=== PATIENT | female | born 1935 | race Caucasian/White ===

== ENCOUNTER 2016-05-12 19:02 | Inpatient (IN) | payer MEDICARE, BC ==
[~2016-05-12] VITALS: Ht 160 cm; Wt 42.0 kg
[~2016-05-12 19:02] MED LIST: CALTRATE 600 +1 EAC1 PO; CULTURELLE1 CAP PO; IMODIUM DPS2 MG PO; KLOR-CON20 MEQ PO; LASIX DPS20 MG PO; LOMOTIL DPS1 PO; LOVENOX80 MG/0.8 SQ; MAALOX DPS30 ML PO; MAG-OX400 MG PO; MEGACE DPS40 MG/ML PO; MOTRIN-DPS800 MG PO; NITROSTAT0.4 MG PO; PRILOSEC DPS20 MG PO; SURFAK240 MG PO; SYNTHROID50 MCG PO; TYLENOL DP650 MG/20. PO; TYLENOL-DPS650 MG PR; TYLENOL325 MG PO; XANAX DPS0.25 MG PO; ZOFRAN4 M1 PO; ZOFRAN4 MG PO
--- NOTE | 2016-05-13 19:12 | ER ---
ADMIT: 05/12/2016 RM/LOC: 521 [facility] MR#: [id number] [address] [address] STEWARTAISHWARYA MONSIVAISLEY Jose Eduardo [address] [place] [id number] Emergency Room Report SEX: F AGE: 80 : 1935 DATE: 05/12/2016 CHIEF COMPLAINT: Shortness of breath. HISTORY OF PRESENT ILLNESS: The patient is an 80-year-old female, complaining of increasing shortness of breath, weakness, difficulty breathing particularly when she lies flat for the past 24 to 48 hours. Denies any fevers, chills, nausea, or vomiting. Does admit to productive cough with brown sputum. The patient suffers from metastatic uterine cancer undergoing experimental drug ([id number]). PAST MEDICAL HISTORY: ALLERGIES: Prednisone causing anxiety. MEDICATIONS: Please see nurse's MAR. ILLNESSES: CAD, CHF, PE, chronically anticoagulated with Lovenox, hyperlipidemia, COPD, pneumonia, ovarian cancer, metastatic uterine cancer, anxiety, and hypothyroidism. OPERATIONS: Venous access port, cholecystectomy, hysterectomy with bilateral salpingo-oophorectomy, and parotidectomy for benign disease. SOCIAL HISTORY: . Nonsmoker, nondrinker. No illicit drugs. FAMILY HISTORY: Positive for asthma, coronary artery disease, and colon cancer. REVIEW OF SYSTEMS: A 12-point review of systems negative for all other systems, illnesses, or operations except as outlined above. PHYSICAL EXAMINATION: VITAL SIGNS: Temperature 98.4, pulse 92, respirations 28, BP 110/92, and SaO2 of 90% 2 L nasal prong. GENERAL: Nontoxic, non-diaphoretic, frail, chronically ill-appearing female without jaundice or icterus. HEENT: Normocephalic. No evidence of epistaxis, rhinorrhea, or otorrhea. NECK: Supple without lymphadenopathy or thyromegaly. CHEST: Breath sounds equal diminished with faint expiratory wheeze noted throughout. HEART: Regular rate and rhythm without murmur, gallop, or edema. ABDOMEN: Soft, nontender, nondistended without mass or megaly. Bowel sounds hypoactive. EXTREMITIES: No evidence of Homans sign, synovitis, or dermatitis. Multiple ecchymoses noted. NEUROLOGIC: EOMI. PERRLA. No evidence of drift, dysarthria, or ataxia. Gait not assessed. MENTAL STATUS: Alert, oriented, anxious without delusions, hallucinations, or abnormal thought content. MEDICAL DECISION MAKING: Chest x-ray showed left lower lobe pneumonia. CTA ADMIT: 05/12/2016 RM/LOC: 521 [facility] MR#: [id number] [address] [address] DINAH SANTILLAN [address] [place] [address] Emergency Room Report SEX: F AGE: 80 : 1935 negative for PE, obstructive consolidation noted left lower lobe, and increased tumor burden noted from CT 3 weeks ago. EKG showed sinus rhythm without ST-T or Q-wave change, unchanged from previous. Hemoglobin 8.7, platelets 496, lactic 2.0, CRP 17.3, sodium 132, CK 23, troponin 0.023, D- dimer 1.04, BNP 12,216. ABGs 3 L; pH 7.46, pCO2 of 33, PO2 of 73. The patient was treated with 2 DuoNeb, magnesium with improvement, and Levaquin 500 mg IV piggyback. Discussed case Dr. Radford and Alana, who evaluated and wrote orders on floor. DIAGNOSES: 1. Obstructive left lower lobe pneumonia. 2. Metastatic uterine cancer undergoing experimental chemotherapy treatment. 3. Pulmonary embolus, chronically anticoagulated with Lovenox. RECOMMENDATION: Admit to inpatient. Telemetry for Dr. Rick Arango. DISCHARGE CONDITION: Fair. The patient is a full code. David Trent MD/ michele JOB #: [id number] CC: Rick Arango MD, Attending Physician Bubba Radford MD, Family Physician Rick Arango MD
--- NOTE | 2016-05-15 07:46 | CO ---
ADMIT: 05/12/2016 RM/LOC: 521 [facility] MR#: [id number] 2620 [facility] [address] [place] [id number] DINAH MATTA [address] [place] [address] Consultation SEX: F AGE: 80 : 1935 DATE OF CONSULTATION: 05/14/2016 ATTENDING PHYSICIAN: Rick Arango CONSULTING PHYSICIAN: Nixon Gutierrez MD HISTORY OF PRESENT ILLNESS: Ms. Matta is a delightful 80-year-old white female, nonsmoker, with previous history of metastatic endometrial/cervical cancer, diagnosed and treated in 2014. She initially was treated at [facility] in [facility]. She underwent cytoreductive surgery with total abdominal hysterectomy with bilateral salpingo-oophorectomy and lymph node dissection. This was followed by postoperative consolidative therapy with chemotherapy and radiation. Had been apparently doing fairly well until about a year later when she developed what sounded like lung metastasis. She underwent further radiation therapy, although I do not have the records handy, which she describes sounds like was stereotactic body radiation therapy to the left lung. Unfortunately, she has developed recurrence and progression of her cancer, now involving not only the left lower lobe, but another lesion in the right lower lobe. About a week ago, she was started on targeted chemotherapy in study and sounds like she is getting EGFR targeted therapy. She states that she has had increasing cough over the last 4 to 6 weeks. This has been associated with progressive shortness of breath. The shortness of breath has been worse with ambulation. She does wear oxygen at night and has been on oxygen for the last couple of years only at night prior to coming into the hospital, she was short of breath, just getting up and going to the bathroom. Shortness of breath became progressively worse to the point that she presented to the Emergency Department. In the emergency department, she underwent evaluation including labs, x-rays, and CT scan. CT scan shows progression of the tumor in the left lower lobe with consolidation and possible postobstructive pneumonia. She has been admitted to the hospital and started on antibiotics with oral Levaquin and IV Zosyn. Today (05/14/2016) is the first day that she has actually felt a little bit better. She is still short of breath with minimal exertion such as going to the bathroom and has been maintained on oxygen at 2 L/minute by nasal cannula with adequate saturations. She otherwise denies significant fevers, chills, or pain. She has not had any hemoptysis. PAST MEDICAL HISTORY: Significant for metastatic endometrial/cervical cancer. She had treatment and therapy as mentioned above with total abdominal hysterectomy with bilateral oophorectomy, and this was followed by zuni- ADMIT: 05/12/2016 RM/LOC: 521 [facility] MR#: [id number] [address] [address] DINAH MATTA [address] [place] [address] Consultation SEX: F AGE: 80 : 1935 based chemotherapy as well as radiation therapy. She has had metastatic disease to the lung and received what sounded like stereotactic body radiation therapy (SPRT). She has a history of hypothyroidism. She has had previous cholecystectomy. She also had previous pulmonary embolism. ALLERGIES: SHE HAS NO KNOWN MEDICAL ALLERGIES, THOUGH APPARENTLY INTOLERANCE OF PREDNISONE, WHICH "CAUSES HER TO GO CRAZY." MEDICATIONS: List of home medications includes: 1. Culturelle b.i.d. 2. Synthroid 50 mcg daily. 3. Surfak p.r.n. 4. Caltrate 60 mg b.i.d. 5. Lasix 20 mg daily. 6. Xanax p.r.n. 7. Hydrocodone p.r.n. 8. Zoloft 25 mg daily. 9. Symbicort 160/4.5 two puffs b.i.d. Additionally, she is on oxygen at 2 L/minute at night. SOCIAL HISTORY: She is , lives in a home with her in [place], [place]. She is a nonsmoker. FAMILY HISTORY: Noncontributory. REVIEW OF SYSTEMS: As above. A 12-point review of system performed, significant positives and negatives discussed above. Additionally, she has had weight loss to her current weight around of 100 pounds. Her normal weight prior to diagnosis of cancer was about 140 pounds. She has been able to maintain her weight now, and appetite has returned somewhat. PHYSICAL EXAMINATION: VITAL SIGNS: She was currently afebrile, temperature of 97.1. Blood pressure 105/64, pulse of 94. Oxygen saturation on 2 L of oxygen was 94%. GENERAL: This is a well-developed, thin, somewhat cachectic-appearing white female, in no acute respiratory distress at rest. HEENT: Head to be normocephalic and atraumatic. Pupils are equal and reactive. Nares patent. Posterior hypopharynx is clear. She is edentulous. NECK: Supple without adenopathy. CHEST: Decreased breath sounds. She has some crackles in the left lung base. Diminished breath sounds in the right lung, no audible wheezes. HEART: Regular, no murmur, slightly tachycardic. ABDOMEN: Thin, soft, nondistended, nontender with well-healed previous surgical incisions. ADMIT: 05/12/2016 RM/LOC: 521 [facility] MR#: [id number] [address] [address] DINAH MATTA [address] [place] [address] Consultation SEX: F AGE: 80 : 1935 EXTREMITIES: Significant muscle atrophy. No focal weaknesses are noted. No significant edema is noted. No focal neurologic deficits are noted. She has appropriate mood and affect. LABORATORY DATA: Lab and x-rays were reviewed including the CT scan. ASSESSMENT AND PLAN: 1. She has acute hypoxic respiratory failure. This is most likely secondary to her metastatic disease in the lung as well as acute pneumonia. She will be maintained on supplemental oxygen. Currently, she is wearing oxygen at night, but at the time of discharge, most likely will need continuous supplemental oxygen. 2. She has metastatic endometrial/cervical adenocarcinoma. Has failed conventional therapy and progression of her disease noted on serial CT scans. A week ago was started on targeted therapy with EGFR inhibitor, we will continue with this. I suspect the length of time she has been on the medication is not enough that would allow for any meaningful assessment of effectiveness and should be maintained on this medication at this point. 3. She has postobstructive pneumonia, currently on the combination of Zosyn and Levaquin, which we will continue with. She has significant anemia of disease. No evidence of active bleeding is noted. However, given her air hunger, may benefit from transfusion to see if we can improve oxygen carrying capacity. 4. She has severe malnutrition, being followed by dietary and receiving nutritional supplements. 5. She has a history of hypothyroidism, on replacement therapy. At this point in time, I have reviewed all of the medications and treatments and agree with current approach. Hopefully, the new targeted therapy will allow her some improvement. If this does not work, I suspect progression of the disease will unfortunately result in her demise secondary to progressive respiratory compromise. We will continue to follow here in the hospital with you and further recommendations following assessment of treatments and therapies. Nixon Gutierrez MD/ michele JOB #: [id number] CC: Rick Arango, Attending Physician Bubba Radford, Family Physician
--- NOTE | 2016-05-16 07:31 | HP ---
ADMIT: 05/12/2016 RM/LOC: 521 [facility] MR#: [id number] [address] [address] DINAH SANTILLAN [address] [place] [address] History and Physical SEX: F AGE: 80 : 1935 DATE OF SERVICE: CHIEF COMPLAINT: Shortness of breath. HISTORY OF PRESENT ILLNESS: The patient is an 80-year-old female with a history of metastatic cervical adenocarcinoma, who presents to the emergency room with progressive shortness of breath and cough. She reports that she has had a dry cough for the last 4-6 weeks that has been progressive in nature and now with few-week history of progressive shortness of breath. She reports she has had worsening difficulty at home, especially with ambulation despite attempting to wear 2 L of oxygen per nasal cannula during the day. She was previously using 2 L per nasal cannula at night, so has oxygen available to her. She denies any known fevers at home, chills, chest pain, pleuritic pain, sputum production, hemoptysis, nausea, vomiting, diarrhea, or peripheral edema. She reports that she did start a new maintenance chemotherapy through clinical trial last week, but denies any appreciable side effects. She reports her current goals of care are to be as aggressive as possible, but understands that most aggressive scenario would be maintenance of her tumor burden. She reports stable weight, though she is down about 50 pounds from her precancer weight and reports continuing difficulty with anorexia. She has no known sick contacts. PAST MEDICAL HISTORY: 1. Metastatic cervical adenocarcinoma, specifically with metastases to the lung. 2. Hypothyroidism. 3. Severe protein-calorie malnutrition. 4. History of pulmonary emboli. PAST SURGICAL HISTORY: 1. Total abdominal hysterectomy and oophorectomy due to malignancy. 2. Cholecystectomy. MEDICATIONS: Home medications are unclear at this time, will be reconciled again. ALLERGIES: INTOLERANCE TO PREDNISONE. FAMILY HISTORY: The patient reports her father had cardiac disease and hypertension, and her mother had asthma. The only other known cancer is in her family, include a sister with colon cancer, which was cured. SOCIAL HISTORY: The patient is retired. She currently lives at home with her and receives home health care. She does not use tobacco, alcohol, or other illicit drugs. REVIEW OF SYSTEMS: GENERAL: No fever or chills. Weight is currently stable. HEENT: No headaches, blurry vision, double vision, nasal congestion, or pharyngitis. ADMIT: 05/12/2016 RM/LOC: 521 [facility] MR#: [id number] [address] [address] DINAH SANTILLAN [address] [place] [address] History and Physical SEX: F AGE: 80 : 1935 CARDIAC: No chest pain or palpitations. PULMONARY: Progressive dry cough and shortness of breath including air hunger on oxygen. GASTROINTESTINAL: No recent nausea or vomiting, diarrhea or constipation. Ongoing anorexia. GENITOURINARY: No dysuria, urinary urgency, or frequency. PSYCH: No significant depression or anxiety. INTEGUMENTARY: Skin breakdown on buttocks. MUSCULOSKELETAL: Chronic hip pain, but no new muscle or joint pain. PHYSICAL EXAMINATION: VITAL SIGNS: 93/64, 80, 26, 92% on 2 L per nasal cannula, 97.8. GENERAL: Pleasant, cachectic, 80-year-old female, sitting in bed, in no acute distress. The patient is alert and oriented with clear mentation, speaking in 2-3 word sentences. HEENT: Head is normocephalic and atraumatic. Pupils are equal, round, and reactive to light. Extraocular muscles are intact. Mucous membranes are dry. Dentures are absent. Patient is edentulous. No appreciable mucocutaneous ulcers. HEART: Regular rate and rhythm without murmur, rub, or gallop. LUNGS: Diminished throughout with no appreciable wheezes or crackles. ABDOMEN: Soft, nontender to palpation. Bowel sounds are present. EXTREMITIES: Without appreciable edema. PSYCH: Normal mood and affect. NEURO: Cranial nerves II through XII are grossly intact. The patient is spontaneously moving all 4 extremities. LABS: WBC 7.4, hemoglobin 8.7, platelets 496. Creatinine 0.7. Sodium 132, albumin 1.7. CRP 17, proBNP 12,216. Procalcitonin 0.20. INR 1.22. Influenza negative. IMAGING: CT scan with left lower lobe consolidation and increased tumor burden. ASSESSMENT AND PLAN: 1. Cough, shortness breath, and hypoxia, likely multifactorial secondary to postobstructive pneumonia as well as tumor burden, possible fluid status. 2. Metastatic cervical adenocarcinoma. 3. Hyponatremia. 4. Anemia. 5. Severe protein-calorie malnutrition. 6. Hypothyroidism. PLAN: 1. Admit the patient and provide oxygen supplementation as needed to maintain sats greater than 90%. We will treat pneumonia with Zosyn at this time and monitor for improvement in respiratory status. The patient ADMIT: 05/12/2016 RM/LOC: 521 [facility] MR#: [id number] [address] [place] [phone] DINAH SANTILLAN [address] [place] [address] History and Physical SEX: F AGE: 80 : 1935 was given fluid boluses upon presentation due to screening positive for sepsis, but will be conscientious of her already elevated ProBNP, and have a low threshold to diurese as needed. 2. Hyponatremia present on admission, may correct with fluids. 3. Severe protein-calorie malnutrition, we will consult Nutrition to see if supplementation would be appropriate or desirable to the patient. We will consult Oncology and ask them to follow with the patient, especially in regard to this clinical trial chemotherapy in the setting of infection. 4. Goals of care were discussed with the patient. She is adamant that she is full code and wants to be aggressive with her care. She identifies her granddaughter as motivation for this choice. Shauna Warner MD Resident / Bubba Radford MD / michele JOB #: [id number] CC: Rick Arango, Attending Physician Bubba Radford, Family Physician
--- NOTE | 2016-05-17 15:51 | CO ---
ADMIT: 05/12/2016 RM/LOC: [facility] MR#: [id number] [address] [address] PAT MATTA [address] [place] [address] Consultation SEX: F AGE: 80 : 1935 DATE OF CONSULTATION: 05/15/2016 ATTENDING PHYSICIAN: Rick Arango CONSULTING PHYSICIAN: Dejah Cantu APRN TIME IN: 0855 hours. TIME-OUT: 0945 hours. REASON FOR CONSULTATION: Supportive care consultation was requested by Dr. Arango for discussion of goals for care and code status. HISTORY OF PRESENT ILLNESS: Pat is a very pleasant 80-year-old, female with the unfortunate history of metastatic cervical adenocarcinoma with metastases to the lung. She has received surgery, chemotherapy, and radiation. She most recently started on a trial medication about a week ago. She has been living at home with her who provides much of her care. She presented to the emergency room on 05/12 with increasing dyspnea. She was found to have postobstructive pneumonia and CT scan revealed progression of disease throughout her lung over the left hilum and the right lower lobe. Due to her complexities, supportive care consultation was requested to discuss goals for care. In terms of advanced directives, the patient is a full code. She does state that she has completed healthcare [id number] work and states that her Alfredo Matta, whose phone #[phone] and [phone] is the patient's healthcare [id number], and their daughter, Margarita Delgado, whose phone #[phone] is her secondary [id number] for healthcare. I do not have the actual documentation of this in front of me. The patient states that she has not completed a living will or other forms of advanced directives. Symptomatically, the patient is complaining of left shoulder pain. She is extremely weak and debilitated. She is cachectic. She denies dyspnea, but is fatigued. Overall, she has had significant weight loss of about 40 to 50 pounds and she is also struggling with anorexia. PAST MEDICAL HISTORY: 1. Metastatic cervical adenocarcinoma with metastases to the lung. 2. Hypothyroidism. 3. Severe protein-calorie malnutrition. 4. History of pulmonary embolism. PAST SURGICAL HISTORY: 1. Total abdominal hysterectomy with oophorectomy due to malignancy. 2. Cholecystectomy. ALLERGIES: THE PATIENT IS ALLERGIC TO PREDNISONE AND PROCAINE. ADMIT: 05/12/2016 RM/LOC: [facility] MR#: [id number] [address] [place] [address] PAT MATTA [address] [place] [address] Consultation SEX: F AGE: 80 : 1935 CURRENT MEDICATIONS: Please see the patient's MAR for specific routes and dosages. Her current medications are as follows: 1. Lasix. 2. Vasotec. 3. Aldactone. 4. Levaquin. 5. Lovenox. 6. Culturelle. 7. Zoloft. 8. Clinical trial drug. 9. Heparin. 10.Zosyn. 11.[place]. 12.Zofran. 13.Motrin. 14.Imodium. 15.Dulera. 16.Benadryl. 17.Tylenol. 18.Maalox. 19.Surfak. 20.Nitrostat. 21.DuoNeb. 22.Synthroid. SOCIAL HISTORY: The patient is . She has one child. She is retired. She does not use alcohol, drugs, or tobacco. FAMILY HISTORY: Her father had heart disease and hypertension, and her mom had asthma. She has a sister with colon cancer. FUNCTIONAL REVIEW: Prior to her hospital stay, she was at home with her . They state that she could ambulate with a walker. She was needing assistance with ADLs such as dressing and bathing. Her intake was reduced. Her palliative performance scale prior to admission was around 50%. Currently, she is mostly in the chair. She is requiring mainly assistance with ADLs. Her intake is reduced. Her current palliative performance scale is 40% to 50%. REVIEW OF SYSTEMS: A 10-point review of systems was completed and other than those pertinent positives and negatives mentioned the HPI, it is negative. PHYSICAL EXAMINATION: GENERAL: The patient is examined in the chair. She appears cachectic. She is in no acute distress. VITAL SIGNS: Temperature 97.6, pulse 95, respirations 18, blood pressure 137/72, oxygen 96% on 2 L per nasal cannula. HEENT: Head is normocephalic. Pupils are 3 mm bilaterally and brisk. Oral ADMIT: 05/12/2016 RM/LOC: [facility] MR#: [id number] [address] [address] PAT MATTA [address] [place] [address] Consultation SEX: F AGE: 80 : 1935 mucosa pink and moist with fair dentition. NECK: Supple. RESPIRATORY: Respirations are equal and nonlabored. LUNGS: Clear anteriorly. CARDIOVASCULAR: Rate and rhythm regular without murmurs, rubs, or gallops. No edema noted. GASTROINTESTINAL: Soft, nontender. Last bowel movement today. MUSCULOSKELETAL: Generalized weakness. INTEGUMENTARY: Skin is frail and thin. No obvious rashes or wounds noted. NEUROLOGIC: Alert and oriented x3. She will follow commands. PSYCHIATRIC: Calm and cooperative. No agitation noted. DIAGNOSTIC DATA: Sodium 130, potassium 4.8, BUN 13, creatinine 0.7, total protein 7.3, albumin 1.7. WBC 7.4, hemoglobin 8.4, hematocrit 28.1, platelets are 543. IMPRESSION: 1. Debility. 2. Fatigue. 3. Malaise. 4. Anorexia. 5. Cachexia. 6. Severe protein-calorie malnutrition. 7. Weight loss. 8. Left shoulder pain. 9. Metastatic cervical adenocarcinoma. 10.Pneumonia. 11.Palliative care. 12.The patient is a full code. PLAN OF TREATMENT: 1. I was able to meet with the patient and her at the bedside. We reviewed her overall status and goals for the time ahead. The patient and her are hopeful that her current trial medication will help her in the time ahead. Her goal was ongoing treatment. The immediate goal is to get back home with home health care and see how things work in terms of the medication. I did begin to gently discuss the potential that there may be a time when no further treatment can be offered to her. I did not explore this extensively at this point, as it is very clear that the patient still wants to proceed with ongoing aggressive care and is hopeful for improvement and ongoing treatment. Both the patient and her do agree to ongoing discussions in the time ahead pending her status. Overall, she is very weak and debilitated and I fear that things may not go as she hopes in the time ahead, therefore, we will continue to discuss goals. 2. I did review code status at length with the patient and her including the burden versus benefit of a full code status versus a do not resuscitate/do not intubate status. The patient is very clear that she ADMIT: 05/12/2016 RM/LOC: [facility] MR#: [id number] [facility] [address] [address] PAT MATTA [address] [place] [address] Consultation SEX: F AGE: 80 : 1935 wishes to be a full code and states that she wants to "keep on going." I am clear with the patient and her that the burden of things like CPR and intubation would be great for her given her medical complexities. She verbalizes understanding of this and directs full code at this time. We will continue to discuss this as well pending her status. 3. I will schedule Tylenol for her shoulder pain as she states that this helps significantly. 4. We will continue to follow along in the care of this patient and assist with goals in the time ahead. We would like to thank Dr. Arango for the invitation to participate in this patient's care. Total consultation time was 50 minutes from 0855 hours to 0945 hours with 27 minutes from 0900 hours to 0927 hours spent [id number] with the patient and her discussing goals for care and providing counseling and care coordination. We will continue to follow along. Dejah Cantu APRN/ michele JOB #: [id number] CC: Rick Arango, Attending Physician Bubba Radford, Family Physician
--- NOTE | 2016-05-30 16:45 | DS ---
ADMIT: 05/12/2016 RM/LOC: 521 [facility] MR#: [id number] [address] [address] PAT SANTILLAN [address] [place] [address] General Discharge Summary SEX: F AGE: 80 : 1935 ADMISSION DATE: 05/12/2016 DISCHARGE DATE: 05/18/2016 ADMISSION DIAGNOSIS: Acute hypoxic respiratory failure, likely multifactorial secondary to postobstructive pneumonia and increased metastatic lung tumor burden. DISCHARGE DIAGNOSIS: Acute hypoxic respiratory failure, likely multifactorial secondary to postobstructive pneumonia and increased metastatic lung tumor burden. SECONDARY DIAGNOSES: 1. Hyponatremia. 2. Anemia of chronic disease. 3. Severe protein calorie malnutrition. 4. Debility. 5. Hypothyroidism. 6. Metastatic endometrial cancer with metastases to the lungs, status post stereotactic radiation to the left lung. 7. Anorexia. 8. Malaise. 9. Weight loss. CONSULTATION: Oncology, Pulmonology, and supportive care. PROCEDURES: None. HISTORY OF PRESENT ILLNESS: Pat presented to the emergency room for 4-6 weeks of progressive shortness of breath and dry cough. She denied any recent fevers, chills, chest pain, including pleuritic pain, sputum production, hemoptysis, nausea, vomiting, diarrhea, or peripheral edema. She has had a chest CT completed on 04/24/2016, and when it was repeated in the ER on the , there was interval increase in bilateral tumor burden in her lungs. On admission, white blood cell count was 7.4, hemoglobin was 8.7, platelets were 496. [place] [address]. Procalcitonin tone was 0.20. Influenza and respiratory viral panel were negative. Blood and urine cultures were collected. There were no growth during the hospitalization. HOSPITAL COURSE: The patient was admitted and treated first as postobstructive pneumonia with Zosyn and Levaquin. On hospital day #2, we reassured she was not septic. She was given some mild IV diuresis and then started on oral diuresis. Her symptoms only mildly improved throughout the hospitalization. She continued to have significant shortness of breath with ambulation that required 2 L of oxygen per nasal cannula continuously. At her best, she was able to walk 30 feet at a time before needing to rest with a total of 115 feet of ambulation therapy. In addition to the shortness of breath, she did have ongoing left shoulder pain. X-rays were completed, which were consistent with osteoarthritis. There was no metastatic bone lesions or other etiologies of her pain. She was treated with Tylenol and then again ADMIT: 05/12/2016 RM/LOC: 521 [facility] MR#: [id number] [address] [address] PAT SANTILLAN [address] [place] [address] General Discharge Summary SEX: F AGE: 80 : 1935 Gould, which was effective. Nutrition saw the patient throughout her hospitalization and recommended supplements 3 times daily between meals. On hospital day #7, the patient elected to be discharged to the [facility] unit. Throughout her hospitalization, Supportive Care was consulted and other conversations were held about her goals of care. Pat maintains that she wants to be aggressive with her care as she has just started the new trial of chemotherapy within the last week. At this time, she elects to be full code and has the goal of returning home with home health care. She did elect to go to the [facility] unit for acute rehab due to her debility with hopes to discharge home. Home oxygen was set up at 2 L per nasal cannula continuously and she was provided a nebulizer for DuoNeb q.i.d. DISCHARGE MEDICATIONS: 1. Aldactone 25 mg p.o. 3 times weekly. 2. Culturelle one cap p.o. b.i.d. 3. Levaquin 500 mg p.o. for 3 additional days. 4. Clinical trial chemotherapy one pill twice daily p.o. 5. Synthroid 50 mcg p.o. daily. 6. Tylenol 650 mg p.o. q.8 hours and p.r.n. as needed. 7. Zoloft 25 mg p.o. daily. 8. Dulera 200/5 two puffs inhaled b.i.d. 9. DuoNeb 3 mL inhaled q.i.d. 10.Lovenox 50 mg subcutaneous daily. 11.Heparin flush IV daily. 12.Lasix 20 mg p.o. daily. 13.Benadryl 25 mg p.o. p.r.n. 14.Hydrocodone/acetaminophen 5/325 mg p.o. q.4 hours and at bedtime p.r.n. pain. 15.Imodium 2 mg p.o. daily p.r.n. loose stools. Additional PRN: 1. Maalox. 2. Motrin. 3. Surfak. 4. Tylenol. 5. Zofran. 6. DuoNeb. 7. Nasal saline. 8. Nitrostat. ADMIT: 05/12/2016 RM/LOC: 521 [facility] MR#: [id number] [address] [address] PAT SANTILLAN [address] [place] [address] General Discharge Summary SEX: F AGE: 80 : 1935 Medication changes in this hospitalization: Aldactone and Lasix were added for management of fluid status and she will complete a course of Levaquin due to post-obstructive pneumonia. CONDITION ON DISCHARGE: Guarded. DISPOSITION: senior care unit for acute rehab. CODE STATUS: Full code. DIET: Pureed diet with Ensure supplements 2-3 times daily. Follow up with Dr. Arango as needed. Shauna Warner MD Resident / Rick Arango MD / modl JOB #: [id number] CC: Rick Arango MD, Attending Physician Bubba Radford MD, Family Physician
== END 2016-05-18 10:07 | DRG 193 ==
LOC: ER 19:02 → 5MS 20:27
PROVIDERS: ADMIT Family Medicine
DX: J18.9 Pneumonia, unspecified organism (principal); J96.21 Acute and chronic respiratory failure with hypoxia; E43 Unspecified severe protein-calorie malnutrition; I50.23 Acute on chronic systolic (congestive) heart failure; C78.01 Secondary malignant neoplasm of right lung; C78.02 Secondary malignant neoplasm of left lung; Z68.1 Body mass index [BMI] 19.9 or less, adult; E87.1 Hypo-osmolality and hyponatremia; Z99.81 Dependence on supplemental oxygen; D63.0 Anemia in neoplastic disease; F41.9 Anxiety disorder, unspecified; M19.012 Primary osteoarthritis, left shoulder; I25.10 Atherosclerotic heart disease of native coronary artery without angina pectoris; E78.5 Hyperlipidemia, unspecified; E03.9 Hypothyroidism, unspecified; Z79.01 Long term (current) use of anticoagulants; Z86.711 Personal history of pulmonary embolism; Z82.49 Family history of ischemic heart disease and other diseases of the circulatory system; Z85.42 Personal history of malignant neoplasm of other parts of uterus

== ENCOUNTER 2016-05-17 09:36 | Inpatient (IN) | payer MEDICARE, BC ==
[~2016-05-17] VITALS: Ht 160 cm; Wt 51.6 kg
--- NOTE | 2016-05-31 10:46 | NUR ---
MDS 3.0 INTERVIEW WITH ADMISSION TO SNU ON 05/18/16: PT. IS ALERT, ORIENTED AND COGNITION IS INTACT. PT. IS A GOOD HISTORIAN WITH ADMISSION ASSESSMENT. PRIOR TO HOSPITALIZATION SHE WAS AT HOME WITH SPOUSE, INDEPENDENT IN ALL HER ADLS AND NEEDS, COOKED FOR HERSELF AND ASSISTED SPOUSE, WHO IS PRESENT AND DOES NOT PUT ANY INPUT DURING THE ENTIRE ADMISSION. SHE STATES SHE WAS HAVING SHORTNESS OF BREATH AND INCREASED DIFF BREATHING AND THAT IS WHY SHE CAME INTO HOSPITAL. HER GOAL IS TO RETURN HOME WITH HER SPOUSE, SHE FEELS ONCE SHE GETS STRONGER AND AND GETS OVER HER PNEUMONIA SHE WILL BE ABLE TO RETURN HOME BEFORE. SHE DENIES ANY DEPRESSION, SHE HAD BEEN SLEEPING WELL AND HER APPETITE IS NOT VERY GOOD, SHE STATES SHE JUST ISN'T HUNGRY. AN ENSURE COMPACT WAS GIVEN TO HER ON ADMISSION AND SHE FELT SHE COULD DRINK IT, SHE CAN ONLY TAKE IN SMALL AMTS AT A TIME SHE STATES. SHE STATES SHE REALLY HAS NO PAIN, BUT STATES TOWARD THE EVENING HOURS HER LT. SHOULDER STARTS BOTHERING HER, IF SHE TAKES A PAIN PILL THAT HELPS HER GET REST AT NIGHT. SHE HAS NO TEETH SHE STATES SO SHE NEED TO HAVE GROUND MEAT AND VERY SOFT FOODS. SHE ALSO HAS PRESSURE ULCERS TO HER BUTTOCKS AND INNER BUTTOCKS, SO A PRESSURE RELIEF CUSHION IN HER CHAIR IS IN PLACE. LIMITED ASSIST OF ONE WHEN ARRIVED TO CHAIR WITH USE OF A GAIT BELT AND A WALKER, GAIT IS WEAK, SL UNSTEADY. SHE STATES SHE HAS RENAULDS DISEASE AND NOTED HER FEET ARE VERY DISCOLORED WELL HER NAILBEDS, DUSKY IN COLOR. DIFFICUT TIME GETTING OXYGEN SATS AND HAS O2 ON AND PT STATES SHE HAS O2 AT HOME BUT DOES NOT KNOW THE NAME OF THE COMPANY. SHE IS ON A TRIAL CHEMO MEDICATION DUE TO OVARIAN CA METS TO THE LUNG. REHAB HERE TO EVALUATE PT., THANKED HER FOR VISIT AND BEING A PT. HERE AT [facility].
== END 2016-06-06 12:31 | disposition short-term general hospital (02) | DRG 193 ==
LOC: SNU 09:36
PROVIDERS: ADMIT Family Medicine
PROC: F08Z4ZZ Home Management Treatment (ICD-10-PCS; principal; 2016-05-18)
PROC: F07Z9ZZ Gait Training/Functional Ambulation Treatment (ICD-10-PCS; principal; 2016-05-18)
PROC: 30233N1 Transfusion of Nonautologous Red Blood Cells into Peripheral Vein, Percutaneous Approach (ICD-10-PCS; 2016-05-29)
DX: J18.9 Pneumonia, unspecified organism (principal); E43 Unspecified severe protein-calorie malnutrition; L89.312 Pressure ulcer of right buttock, stage 2; J96.11 Chronic respiratory failure with hypoxia; C78.01 Secondary malignant neoplasm of right lung; C78.02 Secondary malignant neoplasm of left lung; I50.30 Unspecified diastolic (congestive) heart failure; Z68.1 Body mass index [BMI] 19.9 or less, adult; E87.1 Hypo-osmolality and hyponatremia; Z99.81 Dependence on supplemental oxygen; D63.0 Anemia in neoplastic disease; M19.012 Primary osteoarthritis, left shoulder; F41.9 Anxiety disorder, unspecified; I25.10 Atherosclerotic heart disease of native coronary artery without angina pectoris; E78.5 Hyperlipidemia, unspecified; E03.9 Hypothyroidism, unspecified; Z79.01 Long term (current) use of anticoagulants; Z86.711 Personal history of pulmonary embolism; Z82.49 Family history of ischemic heart disease and other diseases of the circulatory system; Z85.42 Personal history of malignant neoplasm of other parts of uterus

== ENCOUNTER 2016-06-06 12:38 | Inpatient (IN) | payer MEDICARE, BC ==
[~2016-06-06] VITALS: Ht 160 cm; Wt 56.2 kg
--- NOTE | 2016-06-07 13:33 | HP ---
ADMIT: 06/06/2016 RM/LOC: 312 [facility] MR#: [id number] [address] [address] PAT SANTILLAN [address] [place] [address] History and Physical SEX: F AGE: 80 : 1935 DATE OF SERVICE: CHIEF COMPLAINT: Worsening "failure to thrive" and hypoxia with multiple medical issues. INTERVAL NOTE Pat is a very nice, but unfortunate 80-year-old woman who had a diagnosis of metastatic endometrial carcinoma made over the last couple of years and has been through multiple treatments with the local oncology unit after surgery at [facility] in [place]. She was hospitalized here from late April until 05/18/2016, with a 6 day stay with hypoxic respiratory failure associated with pneumonia and diastolic congestive heart failure and metastatic endometrial cancer to her lungs with obstructive disease. She was quite anemic through that hospitalization and was seen by Oncology. She received several transfusions. She also required catheterization for inability to void. She has been at the alf unit since and over the last several days, staff and family have been concerned with her deterioration with increasing oxygen needs, lower blood pressures, increasing proBNP testing, and changes on her x-ray of failure. With her last hospitalization, her ejection fraction was normal. She has been quite resistant to the idea of palliative care and hospice. I had seen her on 06/04/2016 in the office (just 2 days ago) and at that point, she had a blood pressure in the range of 85-90 systolic, pulse of 90. She was afebrile. O2 sats were 90% on 4 L. She was looking increasingly emaciated and I had a rather long discussion with her and granddaughter and another granddaughter by phone suggesting that they would have to sit down and decide what they wanted to do with her deteriorating status. I did suggest that they consider palliative care/hospice and they have had those consultations with her last hospitalization. The skilled unit staff was concerned that she needed hospitalization "for dopamine and Lasix to help her congestive failure." I indicated to family and Pat at the last office visit I was pessimistic that even that would be helpful over the long-term. At any rate, staff called today stating she was continuing to deteriorate and was having O2 sats in the 70s on 6 L. After discussion with the family by staff, they wanted her to be hospitalized. On discussion with her granddaughter Pam who is a nurse and most tuned into her situation, "we just wanted to be comfortable and not feel like she can breathe." Pam has had conversation with her grandmother and mother (who is Pat's POA) that they might need to consider hospice and palliative care, but again Pat has been quite resistant to that. At the office visit 2 days ago, I had a demar discussion with aPt and I think she is moving toward seeing the futility in further care. However, she is now readmitted to ICU because of her hypoxia and we will seek multiple consultations with the escrow agent, senior communications specialist, oncologists, and again with palliative care. PAST MEDICAL HISTORY: Well documented on her previous chart. She carries medical diagnoses of diffuse osteoarthritis, diastolic congestive heart failure, hyperlipidemia, hypothyroidism, previous insufficiency pelvic fractures (November 2015), pulmonary embolism post tank cooper surgery May 2013, and her RUDOLPH/BSO with node exploration with positive nodes at [facility] May 2014 for endometrial carcinoma-now with wide metastases to the ADMIT: 06/06/2016 RM/LOC: 312 [facility] MR#: [id number] [address] [address] TYRELL PAT Jose Eduardo [address] [place] [address] History and Physical SEX: F AGE: 80 : 1935 lung, liver, and bone. She has also had a laparoscopic cholecystectomy in June 2009. CURRENT MEDICATIONS: Include: 1. Aldactone 25 mg Saturday, Saturday, and Saturday. 2. Caltrate with D 600 b.i.d. 3. Culturelle capsules b.i.d. 4. Dulera 200/5 two inhalations b.i.d. 5. Lovenox 60 mg subcu daily. 6. Hydrocodone/acetaminophen 5/325 mg 1/2 to 1 tablet at bedtime p.r.n. 7. Ibuprofen 800 mg q.6 p.r.n. 8. Imodium AD p.r.n. 9. DuoNeb nebulizers q.i.d. and q.1 to 2 hours p.r.n. 10.Lasix 20 mg daily. 11.Maalox and Nitrostat p.r.n. 12.Naproxen 375 mg b.i.d. 13.Surfak 240 mg b.i.d. 14.Synthroid 50 mcg once daily. 15.Xanax 0.25 mg 1/2 tab q.4 hours p.r.n. 16.Zoloft 25 mg daily. 17.Zofran 4 mg q.6 hours p.r.n. nausea. ALLERGIES: SHE REPORTS AN ALLERGY TO PENICILLIN. SHE DOES HAVE AN ALLERGY TO PREDNISONE-GI UPSET. SOCIAL HISTORY: Reveals she has never been a smoker and does not use alcohol. Until her current cancer hit her, she was very active. She and her have lived independently in their home. He is very attentive to her needs - as is the entire family. FAMILY HISTORY: Her mother had asthma. Sister has hypertension and had colon cancer which she survived. REVIEW OF SYSTEMS: She reports no vision problem or headache. She denies any pain except for persistent pain in her left scapular area - felt possibly due to her metastatic disease. She has not been eating very much, so she has been a bit constipated. She has required continued Olvera care for her urinary retention. She has a chronic diagnosis for some anxiety. She has had no history for neurologic illnesses. Remainder of the review of systems is negative. PHYSICAL EXAMINATION: GENERAL: She is alert, she is afebrile. Again she is very frail, looks cachectic but denies any severe pain or difficulty breathing. VITAL SIGNS: Blood pressures were in the 90 range, pulse is about 85, O2 sats in the ICU now on 6 L are in the low 90s. NECK: Reasonably supple. No adenopathy. LUNGS: She has bibasilar crackling rales. ADMIT: 06/06/2016 RM/LOC: 312 [facility] MR#: [id number] [address] [address] PAT SANTILLAN [address] [place] [address] History and Physical SEX: F AGE: 80 : 1935 CARDIAC: She has regular cardiac rhythm. I do not detect murmur. ABDOMEN: Scaphoid without obvious masses, tenderness, organomegaly. EXTREMITIES: Lower extremities show 1+ pitting edema to the midcalf bilaterally. Neurologic is without focal neurologic findings. IMPRESSION: 1. Increasing diastolic congestive heart failure. 2. Possible persistent pneumonia with obstructive disease. 3. 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 4. Worsening "failure to thrive."/downward spiral. 5. All of her other diagnoses. PLAN: She is in the unit. We will seek consultations from Cardiology, Pulmonology, and Oncology and again consultation with Palliative Care. All of this I think hopefully will allow the family and Pat to make appropriate decisions - I have indicated to them that I think further aggressive therapy will be futile in the long run and that they should seriously consider palliative care/hospice. However, we will obviously do whatever Pat and her family decide to ask us to do! I have discussed this again with Pat and her and two granddaughters. Rick Arango MD/ michele JOB #: [id number] CC: Rick Arango, Attending Physician UNKNOWN, Family Physician
--- NOTE | 2016-06-08 11:38 | CO ---
ADMIT: 06/06/2016 RM/LOC: 312 [facility] MR#: [id number] [address] [address] DINAH MATTA Jose Eduardo [address] [place] [address] Consultation SEX: F AGE: 80 : 1935 DATE OF CONSULTATION: 06/06/2016 ATTENDING PHYSICIAN: Rick Arango CONSULTING PHYSICIAN: Dioni Bragg MD LOCATION OF SERVICE: [facility]. REASON FOR CONSULTATION: Requested our consultation for risk reduction counselor, coordination of goals, and options of care. HISTORY OF PRESENT ILLNESS: This is a pleasant 80-year-old elderly female, who is known to our practice and was seen by my partner Dejah Cantu JOHN during her last hospitalization in April of 2016. She does carry a diagnosis of metastatic cervical adenocarcinoma with metastasis to the lungs. She has received surgery, chemotherapy, and radiation in the past and does follow with Dr. Mcintosh and most recently was started on a trial medication, however, I am unaware if she is currently on this. She was hospitalized in April for pneumonia. She had acute hypoxic respiratory failure and was treated aggressively with antibiotic therapy and diuresing. She did require supplemental oxygen at 2 L/minute per nasal cannula continuously. On discharging, she did discharge to a halfway unit for acute rehab. She was admitted today with complaints of dyspnea and increasing oxygen needs. Laboratory work has been collected and is pending at this time. Antibiotic therapy has been started with Levaquin. Oxygen supplementation at 6 L/minute per nasal cannula is in place. She is oxygenating at 93% at this time. Pulmonary consult, Cardiology consult, Oncology consult has been ordered and are pending at this time. Dr. Arango has discussed with the patient and the family his concerns of her continued deterioration and patient and family have continued to direct to proceed with aggressive measures including hospitalizations and full code status. Current functional status reflects a palliative performance score of 30. She is bed bound, unable to do any work due to extensive disease. She is needing total self cares at this time. Her intake is reduced. Her conscious level, she is alert and oriented x3. Prior to admission, her functional status reflects a palliative performance score of around 40 per family's report. She spends most time in the bed or in the chair. She was attempting to do rehabilitation exercises and she needed assistance with her self care. Her intake has been reduced, she has been losing weight, family reports unknown amount of weight loss. Her conscious level has been drowsy at times. PAST MEDICAL HISTORY: Metastatic cervical adenocarcinoma with metastasis to the lung, hypothyroidism, severe protein calorie malnutrition, pulmonary emboli, pneumonia with recent hospitalization in April 2016, diastolic heart failure, last transthoracic echocardiogram was on April 24, 2016 with an ejection fraction 65%. ADVANCED DIRECTIVE AND CODE STATUS: She is a full code status at this time. ADMIT: 06/06/2016 RM/LOC: 312 [facility] MR#: [id number] [address] [place] [id number] DINAH MATTA [address] [place] [address] Consultation SEX: F AGE: 80 : 1935 Her healthcare [id number] is her , Alfredo Matta whose phone #[phone] and [phone]. The daughter is also listed as healthcare [id number]. Her name is Corbyshea Sandy #[phone]. Symptomatically Mrs. Matta denies pain, denies shortness of breath for me at this time. Denies anxiety. Denies nausea, vomiting, or constipation. She does admit to fatigue. She admits to dry mouth and decreased appetite. She reports that she has been losing weight but unaware of the amount, in the past it has been documented to 40-50 pounds weight loss. FAMILY HISTORY: Her father had heart disease and hypertension. Her mother had asthma and she has a sister with colon cancer. CURRENT MEDICATIONS: Include: 1. Merrem. 2. DuoNeb. 3. Tylenol. 4. Nitrostat. 5. Levaquin. ALLERGIES: PREDNISONE, NOVOCAIN. REVIEW OF SYSTEMS: A 10-point review of system was conducted, was otherwise unremarkable except as noted in HPI and PMH. PHYSICAL EXAMINATION: CONSTITUTIONAL: Weight is 107 pounds. Please see medical record for height and BMI. GENERAL STATUS: This is a pleasant elderly cachectic female, in no acute distress. Alert and oriented, able to participate fully in consultation. VITAL SIGNS and CODE STATUS: She is a full code status with temperature of 96.7, heart rate 89, respiratory rate 14, blood pressure 91/57. She is on 6 L of oxygen per nasal cannula oxygenating 93%. HEENT: Head is normocephalic, atraumatic. She does not wear glasses. Pupils are 3 mm, PERRLA. Hearing is intact bilaterally. Oral mucosa is dry. She is edentulous. Anicteric sclerae. Conjunctivae pale. NECK: No lymphadenopathy. Trachea is midline. Supple. No JVD. RESPIRATORY: Respirations are regular without distress. Lung sounds are diminished bilaterally. I do not auscultate any wheezes, crackles, or rhonchi. CARDIOVASCULAR: Rate and rhythm are regular. I do not auscultate rubs, murmurs, clicks, or gallops. GASTROINTESTINAL: Abdomen is soft, flat, nontender and nondistended. Positive bowel sounds in all 4 quadrants. EXTREMITIES: Upper and lower extremities are free of cyanosis, clubbing. She does have 3+ bilateral lower extremity edema. INTEGUMENTARY: Skin temperature is warm. Skin is intact. MUSCULOSKELETAL: Free of joint deformity. Does have generalized weakness. ADMIT: 06/06/2016 RM/LOC: 312 [facility] MR#: [id number] 2620 [facility] [address] [place] [id number] DINAH MATTA [address] [place] [address] Consultation SEX: F AGE: 80 : 1935 NEUROLOGICAL: Alert and oriented x3. She does follow commands. PSYCHIATRIC: Affect is flat. Insight is intact. IMPRESSION AND PLAN: 1. Physical debility. 2. Fatigue. 3. Malaise. 4. Severe protein calorie malnutrition with an albumin 1.2 on June 04. 5. Weight loss of unknown amount. 6. Metastatic cervical adenocarcinoma with metastases to lung, follows with Dr. Mcintosh, has had radiation, chemotherapy. And surgery in the past. 7. Diastolic congestive heart failure. Transthoracic echocardiogram on 04/24/2016 reveals an ejection fraction of 65%. 8. Questionable persistent pneumonia, chest x-ray is pending. 9. Acute on chronic hypoxic respiratory failure. 10.Palliative care. 11.Full code status. Symptoms are currently controlled at this time. Mrs. Matta reports no pain, no dyspnea, no nausea, vomiting, constipation, or anxiety. Her and her granddaughter are at the bedside. All aware of her fragile health state at this time. The patient and family report that Dr. Arango does have concerns of overall decline. We did discuss goals and options of care including code status options, full code versus do not resuscitate/do not intubate status with benefits and burdens. Patient and family continue to direct a full code status as they have during her last hospitalization with consultation with us and with Dr. Arango. The patient and family directed to continue plan of care at this time with further evaluation and treatment and hope to see improvement soon. The patient and family do appreciate our consultation and support at this time and will continue discussions with us during her during her hospitalization as more information is obtained from specialists of Cardiovascular team, Pulmonary team and Oncology Team. Much support given at this difficult time. I have discussed this consultation with nursing staff. Mrs. Matta was seen in collaboration Dr. Chavies who agrees with the above assessment, discussion, and plan. I would like to thank Dr. Arango for the invitation to participate in Mrs. Matta's hospital course. Total consultation time was from 1355 hours to 1429 hours on 06/06/2016 by Palliative Medicine MULTIMEDIA AUTHORING SPECIALIST, this occurred at the bedside. Rufina Mills APRN / Dioni Bragg MD / michele JOB #: [id number] CC: Rick Arango, Attending Physician UNKNOWN, Family Physician
--- NOTE | 2016-06-11 10:29 | CO ---
ADMIT: 06/06/2016 RM/LOC: 312 [facility] MR#: [id number] [address] [id number] STEWARTYODIT DINAH A [address] [place] [address] Consultation SEX: F AGE: 80 : 1935 DATE OF CONSULTATION: 06/06/2016 ATTENDING PHYSICIAN: Rick Arango CONSULTING PHYSICIAN: Alden Rajput MD HISTORY OF PRESENT ILLNESS: She is 80 years old. She was admitted by Dr. Arango to the ICU with low blood pressure and hypotensive shock. 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 She has been through chemotherapy, lately was on oral chemotherapy from oncologist, which has been stopped because of a sore in the mouth. She has a diagnosis of diastolic heart failure. Her proBNP was elevated. She has anemia, hyponatremia, and she was noted to have a deteriorating overall functional status. She was admitted and the family was appraised of the overall status, and her approaching to futile care, but they have decided to go with a full code status. I got a chance to talk to the granddaughter who was present in the room. The patient has expressed a full code status. Dr. Arango has consulted palliative care already to see also, and I was advised to see and manage the hypotension. She has a questionable allergy to prednisone which caused her GI upset. She has been weak and getting weaker. She does get some left chest pain and shoulder pain. She has soreness in her mouth. The diagnosis of uterine cancer was made probably in June or July of 2014, she told me. PHYSICAL EXAMINATION: GENERAL: She looked markedly cachectic, but she was alert and appropriate. There was no clubbing. She has poor skin turgor. There was no lymphadenopathy. There was some whitish hard palate, distinct thrush not seen. Trachea in the midline. Diminished percussion noted on breath sounds and rhonchi on the left. HEART: No heart murmur. ABDOMEN: Soft, nontender. IMAGING: The chest x-ray shows unchanged appearance with left lower hemithorax being opacified because of consolidation atelectasis effusion or combination thereof. LABORATORY DATA: Her lactate level is 1.2, white count is 7.6, hemoglobin 8.8, platelets 549. Sodium 129, potassium 5.1, chloride 97, glucose 97, and creatinine of 0.7. Blood cultures drawn. IMPRESSION: My clinical impression is hypotension, probably hypovolemic. She has not been drinking or eating well and going downhill. I wonder she may have adrenal metastasis also or adrenal insufficiency because of chemotherapy. The adrenal insufficiency becomes a possibility because of potassium of 5.1 ADMIT: 06/06/2016 RM/LOC: 312 [facility] MR#: [id number] [address] [address] DINAH SANTILLAN [address] [place] [address] Consultation SEX: F AGE: 80 : 1935 and sodium of 129. I am going to check a cortisol level and give her Solu- Cortef that may help. I would like to do her some fluid resuscitation with normal saline and some how not convinced that she has a florid congestive heart failure. Overall prognosis, no matter how we look at it is poor. I know that the discussion about futile care has been brought up. I know that the palliative care has already seen. I will see the family opinion in the regard, but I concur with Dr. Arango's assessment that it may not be very rewarding to resuscitate her or ventilate her, etc. Alden Rajput MD/ michele JOB #: [id number] CC: Rick Arango, Attending Physician UNKNOWN, Family Physician MD Rick Portillo MD
--- NOTE | 2016-06-15 10:36 | CO ---
ADMIT: 06/06/2016 RM/LOC: 312 [facility] MR#: [id number] [address] [address] PAT SANTILLAN [address] [place] [address] Consultation SEX: F AGE: 80 : 1935 DATE OF CONSULTATION: 06/06/2016 ATTENDING PHYSICIAN: Rick Arango CONSULTING PHYSICIAN: Kevin Sharma MD REASON FOR CONSULT: Worsening diastolic CHF. HISTORY OF PRESENT ILLNESS: Pat is a very pleasant 80-year-old female with metastatic uterine cancer and known lung metastases. She has undergone chemotherapy and radiation in the past and most recently has been on a clinical trial medication. Over the last few days, her condition has been deteriorating. She has had increasing weakness and shortness of breath. The patient's family was concerned about heart failure as her BNP has increased. Per family report, she was noted to be hypoxic at the group home facility with markedly decreased O2 saturations. She has also been hypotensive. Just 3 weeks ago, she had been hospitalized with acute hypoxic respiratory failure due to postobstructive pneumonia and increased metastatic lung tumor burden. At this time, the family was concerned about increasing water retention in the setting of hypotension and it was felt that the level of care available through the group home facility was not sufficient for her situation. The patient has requested to continue to have all medical interventions possible, therefore she was admitted today for further assessment and management. CARDIAC HISTORY AND RISK FACTORS: Pat states that she has had no problems with her heart in the past. During her most recent hospitalization for hypoxia, an echocardiogram revealed an ejection fraction of 65%, interventricular septum flattening consistent with right ventricular pressure or volume overload, mildly dilated right ventricle with mildly reduced right ventricular function, and the right ventricular wall measuring 0.9 cm, indicating right pressure overload. She denies having any problems with chest pain, palpitations, orthopnea, or syncope. She does have a history of pulmonary emboli; however, it is unclear when that occurred. She continues on Lovenox subcutaneously daily for this. She is a lifetime nonsmoker and has no history of hypertension, hyperlipidemia, or diabetes. There is no known family history Of heart disease. PAST MEDICAL HISTORY: Significant for metastatic uterine cancer with lung metastases, pulmonary emboli, poor nutritional status, hypothyroidism, intermittent constipation, anxiety. PAST SURGICAL HISTORY: Available records indicate prior total abdominal hysterectomy, and oophorectomy as well as cholecystectomy. ALLERGIES: SHE IS ALLERGIC TO PROCAINE AND PREDNISONE. HOME MEDICATIONS: 1. Culturelle. ADMIT: 06/06/2016 RM/LOC: 312 [facility] MR#: [id number] [address] [address] TYRELL PAT Jose Eduardo [address] [place] [address] Consultation SEX: F AGE: 80 : 1935 2. Nitrostat as needed. 3. Levothyroxine 50 mcg daily. 4. Acetaminophen as needed. 5. Surfak as needed. 6. Imodium as needed. 7. Caltrate plus D. 8. Furosemide 20 mg daily. 9. Maalox as needed. 10.Ibuprofen as needed. 11.Xanax as needed. 12.Ondansetron as needed. 13.Lovenox 75 mg subcu daily. 14.Hydrocodone as needed. 15.Sertraline. 16.Tylenol as needed. 17.Symbicort twice daily. FAMILY HISTORY: Pat reports that she has no significant family history of heart disease, diabetes, cancer, or stroke. SOCIAL HISTORY: Pat has recently been living in a group home facility since her recent hospitalization. Prior to that, she lived in her home with her in [place]. She denies consumption of alcohol nonprescription drugs. She does have an occasional caffeinated beverage. REVIEW OF SYSTEMS: GENERAL: Positive for fatigue. Denies fever, chills, sweats, rash, or weight loss. EYES: Denies double vision, blurred vision, cataracts, or glaucoma. ENT: Denies hearing loss or problems with nose, mouth or throat. PULMONARY: Positive for shortness of breath. Denies cough, sputum production, asthma, emphysema or bronchitis. Denies snoring loudly, wakefulness at night, or fatigue upon awakening. GASTROINTESTINAL: Positive for intermittent abdominal pain. Denies heartburn or difficulty swallowing. No change in bowel habits. Denies dark or bloody stools. No history of ulcers, hiatal hernia, or gallbladder or liver disease. GENITOURINARY: Denies dysuria, hematuria, nocturia, urinary tract infection, or kidney stones. Denies history of renal insufficiency or failure. MUSCULOSKELETAL: She states she does have a sore on her buttocks. Denies history of arthritis or gout. Denies muscle or joint pains. ENDOCRINE: Positive for thyroid problems. Denies history of diabetes. HEMATOLOGIC: Positive for anemia and cancer. Denies history of easy bruising. NEUROLOGIC: Positive for history of possible TIA per patient. Denies chronic headaches, dizziness, syncope, seizures or numbness or tingling. PSYCHIATRIC: Positive for anxiety. Denies history of mental illness or feelings of depression. PHYSICAL EXAMINATION: VITAL SIGNS: Blood pressure 91/57, pulse 89, ADMIT: 06/06/2016 RM/LOC: 312 [facility] MR#: [id number] [address] [address] PAT SANTILLAN [address] [place] [address] Consultation SEX: F AGE: 80 : 1935 respirations 14, temperature 96.7, O2 saturation 93% on 6 L of O2. GENERAL: She is cachectic appearing, but in no acute distress. SKIN: [place], warm, and dry. EYES: Sclerae clear. No xanthelasmas. ENT: Oral mucosa is pink and moist. No jugular venous distention or carotid bruits. CHEST: Respirations are even and unlabored. Lungs are clear to auscultation. HEART: Regular rate and rhythm. Normal S1, S2. No murmurs, rubs or gallops. ABDOMEN: Soft and nontender. MUSCULOSKELETAL: She is weak with movement. EXTREMITIES: Trace to 1+ edema bilaterally. Peripheral pulses palpable. No clubbing or cyanosis. PSYCHIATRIC: Alert and oriented. Mood and affect are appropriate. DIAGNOSTIC STUDIES: WBC 7.6, hemoglobin 8.8, platelets 549. Sodium 129. BNP 11,948. Cardiac enzymes are pending. Chest x-ray today reveals stable left lower lobe opacification and pleural effusion. EKG reveals no acute ST changes. IMPRESSION: 1. Dyspnea. 2. Hypoxia. 3. Chronic right heart failure. 4. Pneumonia. 5. Uterine cancer with lung metastases. 6. History of pulmonary emboli. PLAN: Right now, there are no symptoms or signs of acute left-sided heart failure. There are no crackles on lung exam or jugular venous distention. With her current hypotension, we would not want to aggressively diurese. She may even need some pressor support. Her elevated BNP is likely secondary to pulmonary process. We will continue to follow her closely. MIREYA Hobbs Student / CEdgar Sharma MD / michele JOB #: [id number] CC: Rick Arango, Attending Physician UNKNOWN, Family Physician
--- NOTE | 2016-06-19 08:16 | DS ---
ADMIT: 06/06/2016 RM/LOC: 312 [facility] MR#: [id number] [id number] [place], [place] [id number] DINAH SANTILLAN [address] [place] [address] General Discharge Summary SEX: F AGE: 80 : 1935 ADMISSION DATE: 06/06/2016 DISCHARGE DATE: 06/13/2016 FINAL DIAGNOSES: 1. Increasing diastolic congestive heart failure. 2. Probable persistent post obstruction pneumonia. 3. 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 4. Worsening "failure to thrive"/downward spiral. 5. Diffuse osteoarthritis. 6. Hyperlipidemia. 7. Hypothyroidism. 8. Previous insufficiency pelvic fractures (November of 2015). 9. 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 10.Status post laparoscopic cholecystectomy. BRIEF HISTORY: This very nice but unfortunate 80-year-old woman had a diagnosis of metastatic endometrial carcinoma made two years ago and had been through multiple treatments with the local Oncology unit after surgery at [facility] in [place]. She was hospitalized at [facility] from late April until 05/18/2016 with a 6-day stay with hypoxic respiratory failure, associated pneumonia and diastolic congestive heart failure, with metastatic endometrial cancer to her lungs with obstructive disease. She was quite anemic at that hospitalization, received several transfusions. She had been at the residential unit ever since and over the few days prior to this admission, staff and family have been concerned about her deterioration with increasing oxygen needs, low blood pressures, increasing proBNP testing, and changes on x-ray of congestive heart failure. On her previous hospitalization, her ejection fraction had been normal. She had been quite resistant to the idea of palliative care and hospice. Over the intervening weeks, I had several discussions with her, her , and her family about her downhill course and the need to consider palliative care/hospice. She had consultations with her last hospitalization at the skilled unit and with this hospitalization. Her family "just wanted her to be comfortable, not feel like she can't breathe" and requested readmission for further evaluation. She was readmitted to ICU because of her hypoxia, and multiple consultations were obtained. SIGNIFICANT LAB AND X-RAY: On admission, hemoglobin was 8.8 with microcytic indices, platelets of 549,000, white count of 7600. Serial CBCs were followed and hemoglobin reached its trina on 06/08/2016 at 7.8 g with white count of 9800. By 06/09, her white count was 9300 and hemoglobin was 8.6. On 06/06, CMP showed a sodium of 129 mmol/L, calcium of 7.8 mg/dL, albumin of 1.3 G/dL, and was otherwise within normal limits. On admission, her proBNP was 15,817. On 06/07, her lactic acid was 1.4 mmol/L. ADMIT: 06/06/2016 RM/LOC: 312 [facility] MR#: [id number] [address] [place] [id number] DINAH SANTILLAN [address] [place] [address] General Discharge Summary SEX: F AGE: 80 : 1935 Serial chemistries were followed and by 06/09, her BMP was normal but for a sodium of 134 mmol/L, glucose of 112 mg/dL, and calcium 7.8 mg/dL. Serial blood gases were followed from 06/06 to 06/08. On 06/06, C-reactive protein was 20 mg/dL. On 06/06, random cortisol was 9.4 ug/dL (normal 3-22). Blood cultures obtained x2 on admission had no growth after 5 days incubation. On 06/07, CT of the chest was read as " 1. Interval increasing of large consolidative process eburnated from the left hilum, extending to the lower lobes. This may represent infectious or inflammatory process, however, a portion of this may represent neoplastic process. 2. Right lower lobe superior segment partially lobulated irregular mass, slightly increased in size. 3. Interval increase in left pleural effusion.". On 06/07, she underwent left thoracentesis with 450 mg of serous fluid aspirated. By 06/07, her chest x-ray was read as "moderate left pleural effusion with left base atelectasis or consolidations. Subsegmental atelectasis in the right lower lobe. Normal heart size." EKG of 05/12 showed sinus rhythm with left axis deviation, possible inferior infarct and age undetermined inferior T-wave abnormality and low QRS voltage; compared to 05/12/2016, no significant change. HOSPITAL COURSE: The patient was admitted from skilled care to ICU with routine ICU orders. Cardiology, Oncology, Pulmonary, and Palliative Care consults were requested and they were all kind enough to see her. I started her on meropenem 1 g IV q.8 hours and Levaquin 5 mg IV daily with O2 to maintain sats greater than 90% and DuoNeb q.i.d. and q.1 to 2 hours p.r.n. Critical Care standing orders were followed. That day, she was seen by all consultations, and the Critical Care consulted, they initiated normal saline at 200 mL/h for her hypotension and 100 mg Solu- Cortef IV x1 and 50 mg IV q.8 hours. Routine central line orders were followed. She was allowed Gladis's Magic mouthwash q.i.d. p.r.n. for her sore mouth. Following Dr. Mcintosh's evaluation, the CT of her chest and thoracentesis were requested. Adjustments were made in her IV fluids. She required dopamine drip starting at about 2340 hours on 06/06 to maintain her blood pressures. This was continued intermittently through the rest of her hospitalization. ADMIT: 06/06/2016 RM/LOC: 312 [facility] MR#: [id number] [address] [id number] DINAH SANTILLAN [address] [place] [address] General Discharge Summary SEX: F AGE: 80 : 1935 Continued consultations were held with the patient and her family about her deteriorating status. Adjustments were made in her Solu-Cortef doses. She was given albumin 25% 100 mL q.8 hours for total of six doses on 06/07. She was seen by the dietitian. She was allowed Ativan and morphine for anxiety and air hunger. By 06/07, family was requesting "do not resuscitate/do not intubate status", which we granted. By 06/08, she did seem a bit improved and was off her pressors for the time. Her IV fluids were discontinued. The IV albumin was continued. PT and OT saw her intermittently. Continued discussions were held with family and the patient. By 06/10, she reported she was feeling better. She was still hypoxemic, did not require pressors at that point. All the consultants agreed that "comfort care protocol when family and patient agreeable" was fine with all of them. On 06/11, I requested Palliative Care to see her again and visit with family about discontinuing pressor support and going to Supportive Care. By 06/12 (day #6), she was sleeping quietly. Discussed the situation with her and we were awaiting on family decisions. There were a number of mu-ism and psychological concerns. By 06/12 at about 1320 hours, Supportive Care/Palliative Care orders were begun with Roxanol and lorazepam and O2. By 06/13, she was having increasing O2 needs. Her blood pressure was decreasing. She was obviously declining. She was changed to routine Med-Surg orders. Late the morning of 06/13, the family decided to transition to full comfort care. Later that day she quietly with family at bedside. Rick Arango MD/ michele JOB #: [id number] CC: Rick Arango MD, Attending Physician Rick Arango MD, Family Physician MD Alden Vargas MD . [facility]
== END 2016-06-13 23:50 | disposition expired | DRG 180 ==
LOC: 3ICU 12:38
PROVIDERS: ADMIT Family Medicine
PROC: 0W9B3ZZ Drainage of Left Pleural Cavity, Percutaneous Approach (ICD-10-PCS; principal; 2016-06-07)
DX: C78.02 Secondary malignant neoplasm of left lung (principal); J91.0 Malignant pleural effusion; J18.9 Pneumonia, unspecified organism; Z51.5 Encounter for palliative care; J96.21 Acute and chronic respiratory failure with hypoxia; R57.1 Hypovolemic shock; E43 Unspecified severe protein-calorie malnutrition; C78.7 Secondary malignant neoplasm of liver and intrahepatic bile duct; C79.51 Secondary malignant neoplasm of bone; I50.32 Chronic diastolic (congestive) heart failure; E87.1 Hypo-osmolality and hyponatremia; C78.01 Secondary malignant neoplasm of right lung; F41.9 Anxiety disorder, unspecified; D63.1 Anemia in chronic kidney disease; M15.9 Polyosteoarthritis, unspecified; E78.5 Hyperlipidemia, unspecified; E03.9 Hypothyroidism, unspecified; Z86.711 Personal history of pulmonary embolism; Z85.42 Personal history of malignant neoplasm of other parts of uterus; Z66 Do not resuscitate